=== PATIENT | female | born 1935 | race Caucasian/White ===

== ENCOUNTER → 2017-07-03 10:29 | Outpatient (REF) | payer MEDICARE, MEDICAID, SELFPAY ==
[2017-07-03 14:08] LABS: Alanine Aminotransferase 37 U/L (12-78); Albumin/Globulin Ratio 1.2 (1.1-1.8); Alkaline Phosphatase 140 U/L (46-116); Anion Gap 11.6 mEq/L (5-15); Aspartate Amino Transferase 24 U/L (15-37); Bilirubin,Total 0.3 mg/dL (0.2-1.0); Blood Urea Nitrogen 22 mg/dL (7-18); Calcium 8.9 mg/dL (8.5-10.1); Carbon Dioxide 28 mmol/L (21.0-32.0); Chloride 102 mmol/L (98-107); Creatinine,Serum 1.23 mg/dL (0.55-1.02); Estimated Glomerular Filt Rate 42 ml/min (>60); GFR (African American) 51 ML/MIN (>60); Globulin 3.3 gm/dl (1.3-3.2); Glucose 99 mg/dL (74-106); Phenytoin (Dilantin) 9.3 ug/mL (10-20); Potassium 4.6 mmoL/L (3.5-5.1); Sodium 137 mmol/L (136-145); Total Protein,Serum 7.3 gm/dL (6.4-8.2)
== END ==
LOC: LAB.CARL 10:29
PROVIDERS: Visit Provider Physician Assistant
DX: Z51.81 Encounter for therapeutic drug level monitoring (principal); R56.9 Unspecified convulsions
CPT/HCPCS: 80053; 80185

== ENCOUNTER → 2017-07-17 11:21 | Outpatient (REF) | payer MEDICARE, MEDICAID, SELFPAY ==
[2017-07-17 14:20] LABS: Alanine Aminotransferase 35 U/L (12-78); Albumin Level 3.6 gm/dL (3.4-5.0); Albumin/Globulin Ratio 1.1 (1.1-1.8); Alkaline Phosphatase 117 U/L (46-116); Anion Gap 14.7 mEq/L (5-15); Aspartate Amino Transferase 21 U/L (15-37); Bilirubin,Total 0.1 mg/dL (0.2-1.0); Blood Urea Nitrogen 25 mg/dL (7-18); Calcium 8.4 mg/dL (8.5-10.1); Carbon Dioxide 26 mmol/L (21.0-32.0); Chloride 104 mmol/L (98-107); Creatinine,Serum 1.14 mg/dL (0.55-1.02); Estimated Glomerular Filt Rate 46 ml/min (>60); GFR (African American) 55 ML/MIN (>60); Globulin 3.2 gm/dl (1.3-3.2); Glucose 93 mg/dL (74-106); Phenytoin (Dilantin) 12.4 ug/mL (10-20); Potassium 4.7 mmoL/L (3.5-5.1); Sodium 140 mmol/L (136-145); Total Protein,Serum 6.8 gm/dL (6.4-8.2)
[2017-07-18 11:16] LABS: Microalbumin, Urine 118.4 ug/mL (Not Estab.)
[2017-07-20 09:26] LABS: Creatinine, Urine 32.4 mg/dL (Not Estab.)
== END ==
LOC: LAB.CARL 11:21
PROVIDERS: Visit Provider Physician Assistant
DX: G40.909 Epilepsy, unspecified, not intractable, without status epilepticus (principal); Z51.81 Encounter for therapeutic drug level monitoring
CPT/HCPCS: 80053; 80185; 82043; 82570

== ENCOUNTER → 2018-03-26 14:40 | Outpatient (CLI) | payer MEDICARE, MEDICAID, SELFPAY ==
--- NOTE | 2018-03-26 14:48 | XR_ITS ---
XR XR knee LT 4V Comparison: Left femur 2 views 11/17/2016 History: Fall. Right knee pain. Technique: Weightbearing AP, lateral and Wen views were performed as well as oblique. Findings: No acute fracture or significant acute findings. Diffuse demineralization. Osteoporosis. Upper normal joint fluid suprapatella bursa but no discrete fracture is identified tibia and tibial plateau intact. Femoral condyles intact with only scant sclerosis along the lateral femoral condyle which may reflect some subtle early degenerative changes.. Patellofemoral joint and relationships appear normal Long intramedullary domi at the tibia extends down to the distal tibial metaphysis and secured by transverse screw. This area appears intact with no acute fracture.. Of this domi placed for ORIF intertrochanteric fracture Diffuse atherosclerotic calcification superficial femoral artery extending down towards the junction of popliteal artery. Impression: 1. No acute fracture or findings. .. 2.. Partially imaged femoral medullary domi from proximal ORIF.. . 3. Diffuse demineralization. Osteoporosis.
== END ==
PROVIDERS: PCP Physician Assistant; Visit Provider Physician Assistant
DX: M25.562 Pain in left knee (principal); W19.XXXA Unspecified fall, initial encounter
CPT/HCPCS: 73564

== ENCOUNTER → 2018-07-03 10:42 | Outpatient (CLI) | payer MEDICARE, MEDICAID, SELFPAY ==
[2018-07-03 13:50] LABS: Basophils % 0.4 % (0.1-2.0); Eosinophils # 0.2 K/mm3 (0.0-0.4); Eosinophils % 4.1 % (0.1-12.0); Hematocrit 36.5 % (37.0-47.0); Hemoglobin 11.9 g/dL (12.2-16.2); Lymphocytes # 1.4 K/mm3 (0.7-4.5); Lymphocytes % 33.1 % (10-50); Mean Corpuscular HGB Conc 32.6 g/dL (31.8-35.4); Mean Corpuscular Hemoglobin 31.4 pg (27.0-31.2); Mean Corpuscular Volume 96.1 fl (81-99); Mean Platelet Volume 8.5 fl (7.4-10.4); Monocytes # 0.3 K/mm3 (0.1-1.0); Monocytes % 6.4 % (1.7-9.3); Neutrophils # 2.3 K/mm3 (1.8-7.8); Neutrophils % 55.9 % (37.0-80.0); Platelet Count 218 K/mm3 (142-424); Red Cell Distribution Width 13.5 % (11.5-17.5); White Blood Count 4.2 K/mm3 (4.8-10.8)
[2018-07-03 13:56] LABS: Alanine Aminotransferase 33 U/L (12-78); Albumin Level 3.6 gm/dL (3.4-5.0); Alkaline Phosphatase 135 U/L (46-116); Anion Gap 16.4 mEq/L (5-15); Aspartate Amino Transferase 26 U/L (15-37); Bilirubin,Total 0.3 mg/dL (0.2-1.0); Blood Urea Nitrogen 23 mg/dL (7-18); Calcium 9.1 mg/dL (8.5-10.1); Carbon Dioxide 27 mmol/L (21.0-32.0); Chloride 103 mmol/L (98-107); Creatinine,Serum 1.31 mg/dL (0.55-1.02); Estimated Glomerular Filt Rate 39 ml/min (>60); GFR (African American) 47 ML/MIN (>60); Globulin 3.5 gm/dl (1.3-3.2); Glucose 89 mg/dL (74-106); Potassium 4.4 mmoL/L (3.5-5.1); Sodium 142 mmol/L (136-145); Total Protein,Serum 7.1 gm/dL (6.4-8.2)
== END ==
PROVIDERS: PCP Physician Assistant; Visit Provider Physician Assistant
DX: I10 Essential (primary) hypertension (principal); R53.1 Weakness
CPT/HCPCS: 80053; 85025

== ENCOUNTER → 2019-04-15 11:32 | Outpatient (CLI) | payer MEDICARE, MEDICAID, SELFPAY ==
[2019-04-15 14:40] LABS: Phenytoin (Dilantin) 7.6 ug/mL (10-20)
[2019-04-15 14:42] LABS: Basophils % 0.4 % (0.1-2.0); Carbon Dioxide 24 mmol/L (21.0-32.0); Chloride 106 mmol/L (98-107); Eosinophils # 0.2 K/mm3 (0.0-0.4); Eosinophils % 2.7 % (0.1-12.0); Hemoglobin 11.7 g/dL (12.2-16.2); Lymphocytes # 1.6 K/mm3 (0.7-4.5); Lymphocytes % 28.6 % (10-50); Mean Corpuscular HGB Conc 32.4 g/dL (31.8-35.4); Mean Corpuscular Hemoglobin 31.9 pg (27.0-31.2); Mean Corpuscular Volume 98.4 fl (81-99); Mean Platelet Volume 9.3 fl (7.4-10.4); Monocytes # 0.4 K/mm3 (0.1-1.0); Monocytes % 6.2 % (1.7-9.3); Neutrophils # 3.5 K/mm3 (1.8-7.8); Platelet Count 212 K/mm3 (142-424); Red Blood Count 3.66 M/mm3 (4.20-5.40); Red Cell Distribution Width 13.6 % (11.5-17.5); Sodium 144 mmol/L (136-145); T4 (Thyroxine) 7.1 ug/dl (4.7-13.3); White Blood Count 5.7 K/mm3 (4.8-10.8)
[2019-04-15 15:08] LABS: Alanine Aminotransferase 28 U/L (12-78); Albumin Level 3.4 gm/dL (3.4-5.0); Alkaline Phosphatase 136 U/L (46-116); Aspartate Amino Transferase 21 U/L (15-37); Bilirubin,Total 0.1 mg/dL (0.2-1.0); Blood Urea Nitrogen 26 mg/dL (7-18); Calcium 8.1 mg/dL (8.5-10.1); Chol/HDL Ratio 2.3 (1-3.5); Cholesterol 166 mg/dL (140-200); Creatinine,Serum 1.24 mg/dL (0.55-1.02); Estimated Glomerular Filt Rate 41 ml/min (>60); Free Thyroxine Index 2.5 ug/dL (5.93-13.13); GFR (African American) 50 ML/MIN (>60); Globulin 3.3 gm/dl (1.3-3.2); Glucose 105 mg/dL (74-106); HDL Cholesterol 72 mg/dL (29-89); LDL Cholesterol 66 mg/dL (0-130); Thyroid Stimulating Hormone 1.78 uIU/ml (0.358-3.740); Total Protein,Serum 6.7 gm/dL (6.4-8.2); Triglycerides 141 mg/dL (30-200); Triiodothryronine (T3) Uptake 35 % (31-39); VLDL Cholesterol 28 mg/dL (0-40)
== END ==
PROVIDERS: PCP Nurse Practitioner Family; Visit Provider Nurse Practitioner Family
DX: I10 Essential (primary) hypertension (principal); E78.49 Other hyperlipidemia; R56.9 Unspecified convulsions
CPT/HCPCS: 80053; 80061; 80185; 84436; 84443; 84479; 85025

== ENCOUNTER 2020-09-07 10:09 | Emergency (ER) | payer MEDICARE, MEDICAID, SELFPAY ==
--- NOTE | 2020-09-07 10:17 | XR_ITS ---
PROCEDURE: XR KNEE RT 3V CLINICAL INDICATION: FALL COMPARISON: CR [id number] XR knee LT 4V from 03/26/2018 FINDINGS: No acute fracture or dislocation. No lytic or blastic change. Generalized osteopenia. No suprapatellar joint effusion. The soft tissues are unremarkable. Vascular calcification is noted. IMPRESSION: Osteopenia. No acute fractures or dislocations. Dictated by: Renata Bautista 09/07/2020 11:15 Renata Bautista in [place] 09/07/2020 11:15
--- NOTE | 2020-09-07 10:17 | XR_ITS ---
PROCEDURE: XR WRIST LT MIN 3V CLINICAL INDICATION: FALL COMPARISON: CR WRR3 WRIST-3 VIEWS-RT from 10/15/2012 CR WRIST-2 VIEWS-RT from 10/15/2012 CR WRR3 WRIST-3 VIEWS-RT from 10/15/2012 CR WRR3 WRIST-3 VIEWS-RT from 11/29/2012 FINDINGS: Generalized osteopenia limits evaluation. There is heterogeneous density of the distal radius with the evidence of minor cortical irregularity and lucency, raises the concern for undisplaced fracture. Sequela of prior fracture is again noted. The radiocarpal alignment is unremarkable. There is a print soft tissue swelling of the left wrist joint. Vascular calcification is noted. IMPRESSION: Generalized osteopenia limits evaluation. Sequela of old distal radial fracture. There is a minimal lucency with adjacent soft tissue swelling of the distal radius noted, concerning for undisplaced fracture. Dictated by: Renata Bautista 09/07/2020 11:14 Renata Bautista in [place] 09/07/2020 11:14
[2020-09-07 10:50] VITALS: BP 182/96; PULSE 79; RESP 16; TEMP 36.6; O2SAT 98; BMI 17.2
--- NOTE | 2020-09-07 11:11 | [facility].EDUTC ---
[facility] [place] Clinical Impression: Fracture, radius, head Qualifiers: Encounter type: initial encounter Fracture type: closed Fracture alignment: nondisplaced Laterality: left Qualified Code(s): S52.125A - Nondisplaced fracture of head of left radius, initial encounter for closed fracture Strain of right knee Qualifiers: Encounter type: initial encounter Qualified Code(s): S86.911A - Strain of unspecified muscle(s) and tendon(s) at lower leg level, right leg, initial encounter Disposition: Home, Self-Care Condition on Discharge: Good Instructions: Wrist Fracture, DI for Knee Sprain, How to Use an Elastic Bandage-Knee Sprain Additional Instructions: follow up with ortho ekaterina wrap ice 20 mins and remove may repeat every hour as needed tylenol or motrin as needed for pain elevate wrist and knee Referrals: Trenton Corcoran MD [Primary Care Provider] - Claudio Bautista MD [Staff Physician] - Time of Disposition: 11:55 Medical Decision Making - Darion Inquiry Pt receiving controlled substance: No Vital Signs: 09/07/20 10:50 Temperature 97.8 F Temperature Source Oral Pulse Rate [Right Brachial] 79 Respiratory Rate 16 Blood Pressure [Right Arm] 182/96 H Blood Pressure Mean [Right Arm] 124 Blood Pressure Source [Right Arm] Automatic Cuff Blood Pressure Position [Right Arm] Sitting 02 Sat by Pulse Oximetry 98 Oxygen Delivery Method Room Air [facility] [place] HPI - General Chief complaint: Urgent [facility] Stated complaint: [id number] fell injured Lt wrist, Rt knee Time Seen by Provider: 09/07/20 11:11 Mode of Arrival: Ambulatory Source of Information: Patient Limitations: No Limitations Description of Symptoms (Recalled from Triage Doc. by RN): PATIENT C/O INJURY TO LEFT WRIST AND RIGHT KNEE INJURY AFTER FALLING IN THE KITCHEN YESTERDAY HEENT Symptoms (Recalled from RN notes): No Resp Symptoms (Recalled from RN notes): No Skin Symptoms (Recalled from RN notes): No MS Symptoms (Recalled from RN notes): Yes Functional Status (Recalled from RN notes): WNL - History of Present Illness Provider Complaint: 84 yr old female presents for left wrist pain and rt knee pain. family states yesterday pt fell twice. the first time she was hanging her underwear up and fell in the bathroom injuring her rt knee. Family states later that day she was fixing a cup of coffe ans stated her knee gave out and she fell causing her wrist injury. family states she is bnot wanting to use wrist or stand on leg - Related Data Allergies Allergy/AdvReac Type Severity Reaction Status Date / Time No Known Allergies Allergy Verified 03/29/18 10:50 - Worker's Comp Is this a Worker's Comp case?: No [facility] History - Hepatitis A Screen Drug use history?: No High risk sexual behaviors?: No History of sexually transmitted infection?: No Currently employed?: No Childcare worker?: No Do you have indoor plumbing?: Yes Do you have electricity?: Yes Attestation statement:: This patient has been screened for Hepatitis A risk factors. I have reviewed the patient's past medical history: Yes Medical History: Reports:: Anxiety, Hyperlipidemia, Hypertension, Osteoporosis Other Medical History: Reports: Arthritis, Osteoporosis Other Surgeries: Yes: Other Amputation: No Fractures: Yes Comment: Bilateral hip rods - Social History Smoking Status: Never smoker Alcohol Intake: never Occupational Status: other Housing: house Household Members: none - Psychiatric History Pschychiatric History:: Reports:: Anxiety Family Hx:: Non-contributory ROS Obtained: Yes Systems reviewed as appropriate & no additional complaints - Constitutional Constitutional: Reports system reviewed and no additional complaints, except as docu, Denies fever(s) - Eyes Eyes: Reports system reviewed and no additional complaints, except as docu, Denies change in vision - ENT Ears, Nose, Mouth, and Throat: Reports system reviewed and no additional complaints, except as
[2020-09-07 12:04] VITALS: BP 182/96; PULSE 79; RESP 16; TEMP 36.6; O2SAT 98
== END 2020-09-07 12:06 | disposition home or self-care (01) ==
PROVIDERS: Emergency Provider Nurse Practitioner Family; PCP Family Medicine
DX: S86.911A Strain of unspecified muscle(s) and tendon(s) at lower leg level, right leg, initial encounter (principal); S52.125A Nondisplaced fracture of head of left radius, initial encounter for closed fracture; E78.5 Hyperlipidemia, unspecified; M85.831 Other specified disorders of bone density and structure, right forearm; M85.862 Other specified disorders of bone density and structure, left lower leg; W01.0XXA Fall on same level from slipping, tripping and stumbling without subsequent striking against object, initial encounter; Y92.010 Kitchen of single-family (private) house as the place of occurrence of the external cause; I10 Essential (primary) hypertension; F41.9 Anxiety disorder, unspecified
CPT/HCPCS: 29125; G0463; 73110; 73562; 99202

== ENCOUNTER 2020-09-14 10:21 | Outpatient (RCR) | payer MEDICARE, MEDICAID, SELFPAY | END 2020-09-14 11:24 | disposition home or self-care (01) | LOC: OT 10:21 | PROVIDERS: Visit Provider Orthopaedic Surgery | DX: S52.125A Nondisplaced fracture of head of left radius, initial encounter for closed fracture (principal) | CPT/HCPCS: 97763 ==

== ENCOUNTER → 2020-11-25 09:39 | Outpatient (CLI) | payer MEDICARE, MEDICAID, SELFPAY ==
--- NOTE | 2020-11-25 09:45 | XR_ITS ---
PROCEDURE: XR WRIST LT MIN 3V CLINICAL INDICATION: LT wrist Follow-up fracture COMPARISON: CR WRIST-2 VIEWS-RT from 10/15/2012 CR WRR3 WRIST-3 VIEWS-RT from 10/15/2012 CR WRR3 WRIST-3 VIEWS-RT from 11/29/2012 CR XR WRIST LT MIN 3V from 09/07/2020 FINDINGS: There is a healing transverse fracture involving the distal radius as noted before. There is mild dorsal angulation and minimal dorsal displacement of the distal fracture fragment. Fracture line is becoming sclerotic suggesting healing. Minimally distracted fracture of the ulnar styloid process noted. There is diffuse osteopenia and vascular calcification. IMPRESSION: Healing distal radial fracture as described above with minimally distracted ulnar styloid process fracture Dictated by: Osmar Crump MD 11/25/2020 11:46 Osmar Crump MD in [place] 11/25/2020 11:46
== END ==
PROVIDERS: PCP Nurse Practitioner Family; Visit Provider Orthopaedic Surgery
DX: S52.502D Unspecified fracture of the lower end of left radius, subsequent encounter for closed fracture with routine healing (principal)
CPT/HCPCS: 73110

== ENCOUNTER → 2021-12-13 17:43 | Outpatient (CLI) | payer MEDICARE, MEDICAID, SELFPAY ==
[2021-12-13 18:51] LABS: Basophils % 0.5 % (0.1-2.0); Eosinophils # 0.1 K/mm3 (0.0-0.4); Eosinophils % 1.3 % (0.1-12.0); Hematocrit 38.3 % (37.0-47.0); Hemoglobin 12.2 g/dL (12.2-16.2); Lymphocytes # 1.4 K/mm3 (0.7-4.5); Mean Corpuscular HGB Conc 31.7 g/dL (31.8-35.4); Mean Corpuscular Hemoglobin 32.2 pg (27.0-31.2); Mean Corpuscular Volume 101.7 fl (81-99); Monocytes # 0.3 K/mm3 (0.1-1.0); Monocytes % 4.7 % (1.7-9.3); Neutrophils # 4.4 K/mm3 (1.8-7.8); Neutrophils % 71.5 % (37.0-80.0); Platelet Count 270 K/mm3 (142-424); Red Blood Count 3.77 M/mm3 (4.20-5.40); Red Cell Distribution Width 13.4 % (11.5-17.5); White Blood Count 6.2 K/mm3 (4.8-10.8)
[2021-12-13 19:05] LABS: Alanine Aminotransferase 23 U/L (12-78); Albumin Level 4.3 g/dl (3.5-5.0); Albumin/Globulin Ratio 1.5 (1.1-1.8); Alkaline Phosphatase 172 U/L (38-126); Anion Gap 11.8 mEq/L (5-15); Aspartate Amino Transferase 42 U/L (14-36); Blood Urea Nitrogen 22 mg/dl (7-17); Calcium 9.8 mg/dl (8.4-10.2); Carbon Dioxide 27 mmol/L (22.0-30.0); Chloride 106 mmol/L (98-107); Estimated Glomerular Filt Rate 39 ml/min (>60); GFR (African American) 47 ML/MIN (>60); Globulin 2.9 g/dL (1.3-3.2); Glucose 119 mg/dl (74-100); Potassium 5.8 mmoL/L (3.5-5.1); Sodium 139 mmol/L (136-145); Total Protein,Serum 7.2 g/dl (6.3-8.2)
[2021-12-13 19:06] LABS: Bilirubin,Total < 0.1 mg/dl (0.2-1.3)
== END ==
PROVIDERS: PCP Family Medicine; Visit Provider Family Medicine
DX: G40.909 Epilepsy, unspecified, not intractable, without status epilepticus (principal)
CPT/HCPCS: 80053; 85025

== ENCOUNTER → 2022-02-25 10:30 | Outpatient (CLI) | payer MEDICARE, MEDICAID, SELFPAY ==
[2022-02-25 19:37] LABS: Alanine Aminotransferase 23 U/L (12-78); Albumin Level 3.8 g/dl (3.5-5.0); Albumin/Globulin Ratio 1.6 (1.1-1.8); Alkaline Phosphatase 136 U/L (38-126); Anion Gap 17.7 mEq/L (5-15); Aspartate Amino Transferase 46 U/L (14-36); Bilirubin,Total 0.2 mg/dl (0.2-1.3); Blood Urea Nitrogen 26 mg/dl (7-17); Calcium 8.2 mg/dl (8.4-10.2); Carbon Dioxide 25 mmol/L (22.0-30.0); Chloride 104 mmol/L (98-107); Estimated Glomerular Filt Rate 33 ml/min (>60); GFR (African American) 40 ML/MIN (>60); Globulin 2.4 g/dL (1.3-3.2); Glucose 103 mg/dl (74-100); Potassium 5.7 mmoL/L (3.5-5.1); Sodium 141 mmol/L (136-145); Total Protein,Serum 6.2 g/dl (6.3-8.2)
[2022-02-25 20:17] LABS: Basophils # 0.1 K/mm3 (0-0.2); Basophils % 1.2 % (0.1-2.0); Eosinophils # 0.3 K/mm3 (0.0-0.4); Eosinophils % 6.1 % (0.1-12.0); Hematocrit 30.3 % (37.0-47.0); Hemoglobin 10.2 g/dL (12.2-16.2); Lymphocytes # 1.9 K/mm3 (0.7-4.5); Lymphocytes % 34.9 % (10-50); Mean Corpuscular HGB Conc 33.7 g/dL (31.8-35.4); Mean Corpuscular Hemoglobin 33.8 pg (27.0-31.2); Mean Platelet Volume 9.4 fl (7.4-10.4); Monocytes # 0.4 K/mm3 (0.1-1.0); Monocytes % 7.3 % (1.7-9.3); Neutrophils # 2.7 K/mm3 (1.8-7.8); Neutrophils % 50.4 % (37.0-80.0); Platelet Count 276 K/mm3 (142-424); Red Blood Count 3.03 M/mm3 (4.20-5.40); Red Cell Distribution Width 14.1 % (11.5-17.5); White Blood Count 5.3 K/mm3 (4.8-10.8)
[2022-02-25 20:25] LABS: Erythrocyte Sedimentation Rate QNS mm/hr (0-30)
[2022-02-25 20:38] LABS: C-Reactive Protein 5.8 mg/L (0-4)
[2022-02-27 09:12] LABS: RA Latex Turbid. <10.0 IU/mL (<14.0)
[2022-02-27 14:13] LABS: Anti-Centromere B Antibodies <0.2 AI (0.0-0.9); Anti-DNA (DS) Ab Qn 10 IU/mL (0-9); Anti-Jo-1 <0.2 AI (0.0-0.9); Anti-Smith Antibody <0.2 AI (0.0-0.9); Antichromatin Antibodies <0.2 AI (0.0-0.9); Antiscleroderma-70 Antibodies <0.2 AI (0.0-0.9); RNP Antibodies <0.2 AI (0.0-0.9); Sjogren's Anti-SS-A <0.2 AI (0.0-0.9); Sjogren's Anti-SS-B <0.2 AI (0.0-0.9)
== END ==
PROVIDERS: PCP Nurse Practitioner Family; Visit Provider Nurse Practitioner Family
DX: J32.9 Chronic sinusitis, unspecified (principal); M25.50 Pain in unspecified joint; R51.9 Headache, unspecified
CPT/HCPCS: 80053; 85025; 86140; 86225; 86235; 86431

== ENCOUNTER → 2023-03-30 19:57 | Outpatient (CLI) | payer MEDICARE, MEDICAID, SELFPAY ==
[2023-03-30 20:25] LABS: Alanine Aminotransferase 35 U/L (12-78); Albumin Level 4.3 g/dl (3.5-5.0); Albumin/Globulin Ratio 1.6 (1.1-1.8); Alkaline Phosphatase 119 U/L (38-126); Anion Gap 15.1 mEq/L (5-15); Aspartate Amino Transferase 50 U/L (14-36); Bilirubin,Total 0.3 mg/dl (0.2-1.3); Blood Urea Nitrogen 28 mg/dl (7-17); Calcium 8.9 mg/dl (8.4-10.2); Carbon Dioxide 26 mmol/L (22.0-30.0); Chloride 103 mmol/L (98-107); Chol/HDL Ratio 3.3 (1-3.5); Cholesterol 177 mg/dl (140-200); Estimated Glomerular Filt Rate 33 ml/min (>60); GFR (African American) 40 ML/MIN (>60); Globulin 2.7 g/dL (1.3-3.2); Glucose 126 mg/dl (74-100); HDL Cholesterol 54 mg/dl (40-60); Potassium 5.1 mmoL/L (3.5-5.1); Sodium 139 mmol/L (136-145); Triglycerides 193 mg/dl (30-150); VLDL Cholesterol 39 mg/dL (0-40)
[2023-03-30 20:36] LABS: Direct LDL Cholesterol 79.75 mg/dL (100-129)
[2023-03-30 20:40] LABS: Basophils % 0.3 % (0.1-2.0); Eosinophils # 0.1 K/mm3 (0.0-0.4); Eosinophils % 2.2 % (0.1-12.0); Hematocrit 39.7 % (37.0-47.0); Hemoglobin 12.5 g/dL (12.2-16.2); Lymphocytes # 1.4 K/mm3 (0.7-4.5); Lymphocytes % 25.1 % (10-50); Mean Corpuscular HGB Conc 31.3 g/dL (31.8-35.4); Mean Corpuscular Hemoglobin 32.9 pg (27.0-31.2); Mean Platelet Volume 9.9 fl (7.4-10.4); Monocytes # 0.3 K/mm3 (0.1-1.0); Monocytes % 6.1 % (1.7-9.3); Neutrophils # 3.8 K/mm3 (1.8-7.8); Neutrophils % 66.3 % (37.0-80.0); Platelet Count 244 K/mm3 (142-424); Red Blood Count 3.78 M/mm3 (4.20-5.40); Red Cell Distribution Width 13.8 % (11.5-17.5); White Blood Count 5.7 K/mm3 (4.8-10.8)
[2023-03-30 20:55] LABS: Thyroid Stimulating Hormone 3.17 uIU/mL (0.465-4.68)
== END ==
PROVIDERS: PCP Family Medicine; Visit Provider Family Medicine
DX: I10 Essential (primary) hypertension (principal); S52.125A Nondisplaced fracture of head of left radius, initial encounter for closed fracture
CPT/HCPCS: 80053; 80061; 84443; 85025

== ENCOUNTER 2023-10-04 01:28 | Emergency (ER) | payer MEDICARE, MEDICAID, SELFPAY ==
--- NOTE | 2023-10-04 02:04 | CT_ITS ---
PROCEDURE INFORMATION: Exam: CT Cervical Spine Without Contrast Exam date and time: 10/04/2023 2:33 AM Age: 87 years old Clinical indication: Injury or trauma; Fall; Blunt trauma TECHNIQUE: Imaging protocol: Computed tomography of the cervical spine without contrast. Radiation optimization: All CT scans at this facility use at least one of these dose optimization techniques: automated exposure control; mA and/or kV adjustment per patient size (includes targeted exams where dose is matched to clinical indication); or iterative reconstruction. COMPARISON: CT HEAD/BRAIN WO CON 10/04/2023 2:33 AM FINDINGS: Bones/joints: Diffuse cervical spondylosis is noted. Hypertrophic changes of the facet present bilaterally. Discs/Spinal canal/Neural foramina: Narrowing of multiple intervertebral disc spaces are seen. Moderate neural foraminal narrowing is also noted. Lungs: Lung apices are normal. Vasculature: No obvious traumatic injury is seen. Carotid atherosclerosis is present. Soft tissues: Unremarkable. IMPRESSION: 1. No evidence of acute traumatic injury. 2. Diffuse cervical spondylosis. 3. Carotid atherosclerosis is present.
--- NOTE | 2023-10-04 02:04 | CT_ITS ---
PROCEDURE INFORMATION: Exam: CT Head Without Contrast Exam date and time: 10/04/2023 2:33 AM Age: 87 years old Clinical indication: Injury or trauma; Fall; Blunt trauma (contusions or hematomas); Consciousness not specified; Additional info: Fall, facial laceration TECHNIQUE: Imaging protocol: Computed tomography of the head without contrast. Radiation optimization: All CT scans at this facility use at least one of these dose optimization techniques: automated exposure control; mA and/or kV adjustment per patient size (includes targeted exams where dose is matched to clinical indication); or iterative reconstruction. COMPARISON: CT CERVICAL SPINE WO CON 10/04/2023 2:33 AM FINDINGS: Brain: There is diffuse prominence of the cerebral sulci, cisterns, and ventricles consistent with atrophy. No intra or extra-axial fluid collections are noted. No mass or mass effect is seen. Periventricular white matter hypoattenuation is seen consistent with chronic small vessel disease. Cerebral ventricles: No ventriculomegaly. Paranasal sinuses: Visualized sinuses are unremarkable. No fluid levels. Mastoid air cells: Visualized mastoid air cells are well aerated. Bones: Unremarkable. No acute fracture. Soft tissues: Unremarkable. IMPRESSION: No acute process noted.
[2023-10-04 02:06] VITALS: BP 194/94; PULSE 112; RESP 20; TEMP 36.4; O2SAT 93; BMI 15.1
[2023-10-04 02:14] VITALS: BP 194/94; PULSE 107; O2SAT 95
--- NOTE | 2023-10-04 02:30 | PC.NURSE ---
PT TO CT VIA STRETCHER. FAMILY MEMBER AND NURSE ACCOMPANYING D/T MENTALITY
[2023-10-04] MEDS: TET/DIPHTH/PERT-ADULT 0.5ML SYRINGE 0.5 ML IM (03:11)
--- NOTE | 2023-10-04 03:15 | ED_ITS ---
Discharge Plan Disposition Patient Disposition: Home, Self-Care Prescriptions Prescriptions: No Action atorvastatin 40 mg tablet 40 mg PO HS 90 Days Qty: 90 2RF bisoprolol fumarate 10 mg tablet 10 mg PO DAILY 90 Days Qty: 90 2RF lisinopril 30 mg tablet 30 mg PO DAILY 90 Days Qty: 90 2RF Centrum Adult 50 Fresh-Fruity 120 mcg tablet,chewable 1 tab PO DAILY docusate sodium 100 mg capsule 100 mg PO DAILY PRN (Reason: constipation) Patient Comments: TAKE 1 CAPSULE 1 TIME EACH DAY NEEDED FOR CONSTIPATION diclofenac sodium 1 % gel 4 g TP BID 30 Days Qty: 100 2RF acetaminophen 650 mg tablet extended release See Rx Instructions .ROUTE .COMPLEX Qty: 90 2RF Dose Instruction: TAKE 1 TABLET EVERY 8 HOURS NEEDED FOR PAIN Rx Instructions: TAKE 1 TABLET EVERY 8 HOURS NEEDED FOR PAIN alprazolam 0.25 mg tablet 0.25 mg PO DAILY Qty: 30 3RF phenytoin sodium extended 100 mg capsule See Rx Instructions .ROUTE .COMPLEX Qty: 90 2RF Dose Instruction: TAKE TWO CAPSULES IN THE MORNING, AND TAKE 1 CAPSULE AT BEDTIME. Rx Instructions: TAKE TWO CAPSULES IN THE MORNING, AND TAKE 1 CAPSULE AT BEDTIME. amlodipine 10 mg tablet See Rx Instructions .ROUTE .COMPLEX Qty: 30 2RF Dose Instruction: TAKE 1 TABLET 1 TIME EACH DAY FOR HIGH BLOOD PRESSURE Rx Instructions: TAKE 1 TABLET 1 TIME EACH DAY FOR HIGH BLOOD PRESSURE citalopram 10 mg tablet See Rx Instructions .ROUTE .COMPLEX Qty: 30 2RF Dose Instruction: TAKE 1 TABLET 1 TIME EACH DAY Rx Instructions: TAKE 1 TABLET 1 TIME EACH DAY omeprazole 20 mg capsule,delayed release(DR/EC) See Rx Instructions .ROUTE .COMPLEX Qty: 30 2RF Dose Instruction: TAKE 1 CAPSULE 1 TIME EACH DAY FOR REFLUX Rx Instructions: TAKE 1 CAPSULE 1 TIME EACH DAY FOR REFLUX aspirin 81 mg Capsule 81 mg PO DAILY Referrals Follow up/Referrals: Jus Schmidt MD [Primary Care Provider] - See instructions Activity Restrictions/Add. Instructions Additional Instructions/Restrictions: Please monitor for signs of infection. Please have luann removed in 7 to 10 days. Please follow-up with your primary care provider. Please return to the emergency department if you develop any new or worsening symptoms or become concerned for your health. Clinical Impressions Clinical Impression: Laceration of face Qualifiers: Encounter type: initial encounter Qualified Code(s): S01.81XA - Laceration without foreign body of other part of head, initial encounter Discharge ED Provider: Dewayne Fernandes General Adult HPI General Chief complaint: Fall Stated complaint: FALL W/LAC Time Seen by Provider: 10/04/23 01:35 Mode of Arrival: Wheelchair Source of Information: Relative Limitations: Physical Limitations Description of Symptoms (Recalled from ER Triage Doc. by RN): Pt to ED with family members. Niece reports pt called her around 0100 stated that she had fallen. Grand daughter believes she was adjusting blinds in a tight area in the livingroom and fell and hit her head on the table. Unsure of any LOC, pt not on blood thinners. Mental status is at baseline, per family. Niece states pts neighbor checked on her around midnight and she was still in bed at that time. History of Present Illness HPI narrative: 87-year-old female presents after fall from standing with facial laceration. Unknown loss of consciousness. Patient is not on blood thinners besides daily baby aspirin. Patient fell while adjusting the blinds. Patient has some dementia and has difficulty in providing history. She has history of moderate to severe hypertension, normal blood pressures in the 170s to 180s. Related Data Home Medications Medication Instructions Recorded Confirmed multivitamin with minerals-folic 1 tab PO DAILY 12/13/21 10/04/23 acid 120 mcg chewable tablet (Centrum Adult 50 Plus Fresh-Fruity) docusate sodium 100 mg capsule 100 mg PO DAILY PRN constipation 08/11/22 10/04/23 aspirin 81 mg capsule 81 mg PO DAILY ANTIPLATELET 10/04/23 10/04/23 Previous Rx's Medication Instructions Recorded atorvastatin 40 mg tablet 40 mg PO HS 90 days #90 tabs 01/19/23 bisoprolol fumarate 10 mg tablet 10 mg PO DAILY 90 days #90 tabs 01/19/23 lisinopril 30 mg tablet 30 mg PO DAILY hypertension 90 01/19/23 days #90 tabs diclofenac sodium 1 % topical gel 4 g topical BID 30 days #100 grams 04/28/23 acetaminophen 650 mg See Rx Instructions .Route 07/17/23 tablet,extended release .COMPLEX #90 tabs alprazolam 0.25 mg tablet 0.25 mg PO DAILY #30 tabs 07/22/23 amlodipine 10 mg tablet See Rx Instructions .Route 08/28/23 .COMPLEX #30 tabs phenytoin sodium extended 100 mg See Rx Instructions .Route 08/28/23 capsule .COMPLEX #90 caps citalopram 10 mg tablet See Rx Instructions .Route 09/26/23 .COMPLEX #30 tabs omeprazole 20 mg capsule,delayed See Rx Instructions .Route 09/26/23 release .COMPLEX #30 caps Allergies Allergy/AdvReac Type Severity Reaction Status Date / Time cephalexin [From Keflex] Allergy vomiting Verified 09/18/23 11:03 [facility] Disclaimer: The information contained in this section may have been updated after the patient was seen, as this information can be updated by other users. Medical History Heart murmur Hypertension Anxiety Seizure disorder Strain of right knee Fracture, radius, head Surgical History Hip fracture requiring operative repair Social History Smoking Status: Unknown if ever smoked alcohol intake: never current occupational status: disabled and other Travel in the last 8 weeks: None household members: none (sitter at night/spends days with niece) housing: apartment ROS Obtained: Yes All systems reviewed & no additional complaints except as documented Physical Exam General General appearance: alert and in no apparent distress Head Head exam: normocephalic and other (Approximately 2 to 3 cm linear laceration to the right lateral forehead) Eye Eye exam: Present normal appearance, PERRL and EOMI ENT ENT exam: Present normal oropharynx and normal external ear exam Neck Neck exam: Present normal inspection and full ROM; Absent tenderness Chest Chest inspection: Present normal inspection and symmetric chest wall rise; Absent tenderness Respiratory Respiratory exam: Present normal lung sounds bilaterally; Absent respiratory distress Cardiovascular Cardiovascular exam: Present regular rate and normal rhythm Abdominal Exam Abdominal exam: Present soft; Absent distention, tenderness or guarding Extremities Exam Extremities exam: Present normal inspection; Absent tenderness, edema or joint swelling Back Exam Back exam: Present normal inspection; Absent tenderness Neurological Exam Neurological exam: Present alert and other (At baseline per family); Absent motor sensory deficit Psychiatric Psychiatric exam: Present normal affect and normal mood Skin Skin exam: Present warm, dry and normal color Lymphatic Lymphatic Findings: no adenopathy Medical Decision Making Medical Records Medical records reviewed: Yes I reviewed the patient's medical records. Darion Inquiry Pt receiving controlled substance: No Darion was queried for this patient: No Vital Signs: 10/04/23 02:06 10/04/23 02:14 10/04/23 03:19 Temperature 97.6 F 97.6 F Temperature Source Oral Oral Pulse Rate 107 H 87 Pulse Rate [Right Radial] 112 H Respiratory Rate 20 18 Blood Pressure 194/94 H 196/100 H Blood Pressure [Right Arm] 194/94 H Blood Pressure Mean 131 Blood Pressure Mean [Right Arm] 127 Blood Pressure Source Automatic Cuff Blood Pressure Source [Right Arm] Automatic Cuff Blood Pressure Position Sitting Blood Pressure Position [Right Arm] Sitting 02 Sat by Pulse Oximetry 93 L 95 Oxygen Delivery Method Room Air Room Air Lab Data Lab results reviewed: Yes I reviewed the patient's lab results. Orders (Tests/Meds): ED MEDICATIONS Discontinued Medications Generic Name Dose Route Start Last Admin Trade Name Freq PRN Reason Stop Dose Admin Tetanus/Reduced Diphtheria/Acell Pertussis 0.5 ml 10/04/23 03:04 10/04/23 03:11 Tet/Diphth/Pert-Adult 0.5ml Syringe IM 10/04/23 03:05 0.5 ml .ONCE ONE Administration ORDERS Category Date Time Status CT cervical spine wo con Stat Cat Scan 10/04/23 02:[address] head/brain wo con Stat Cat Scan 10/04/23 02:04 Completed Medical Decision Narrative: 87-year-old female presents after fall from standing with right facial laceration.. History was obtained interactive discussion with patient, family, chart review. On arrival, patient is afebrile, hypertensive (at baseline), moving all extremities spontaneously. Full physical exam performed and significant for right forehead/shinto laceration, no neck pain, no chest or pelvic tenderness, no significant extremity tenderness or spinal tenderness. Differential includes but is not limited to intracranial intrathoracic intra- abdominal or spinal trauma. Workup initiated including CT head, CT C-spine. On re-evaluation, patient [remains afebrile, HD stable.] Imaging independently interpreted by me and significant for no evidence of intracranial bleeding, no cervical fracture. See radiology read for full review of final results. Full trauma workup was considered, but deemed unnecessary due to isolated injury on exam. Given patient history, exam and workup, patient's presentation most likely represents facial laceration. It was repaired at bedside using luann after discussion with family. We elected to luann as the patient does not do well with the procedures and we elected for speed. Patient was given tetanus prophylaxis. Patient discharged in stable condition.. Procedures Risk/Benefits of Procedure(s) Were Explained: Yes Laceration Laceration 1: Site: face (Right shinto/forehead) Size (cm): 2 Description: linear Depth: involves subcutaneous layer Pre-repair: wound explored and irrigated extensively Skin layer closed with: other (3 [place]) Critical Care Critical Care Time Critical Care Time: No
[2023-10-04 03:19] VITALS: BP 196/100; PULSE 87; RESP 18; TEMP 36.4; O2SAT 96
== END 2023-10-04 03:22 | disposition home or self-care (01) ==
PROVIDERS: Emergency Provider Emergency Medicine; PCP Family Medicine
DX: S01.81XA Laceration without foreign body of other part of head, initial encounter (principal); I10 Essential (primary) hypertension; W18.30XA Fall on same level, unspecified, initial encounter; Z23 Encounter for immunization
CPT/HCPCS: 12011; 70450; 72125; 90471; 90715; 99284

== ENCOUNTER 2023-11-01 19:13 | Outpatient (CLI) | payer MEDICARE, MEDICAID, SELFPAY ==
[2023-11-01 20:28] LABS: Basophils % 0.2 % (0.1-2.0); Eosinophils # 0.1 K/mm3 (0.0-0.4); Eosinophils % 2.5 % (0.1-12.0); Hematocrit 31.3 % (37.0-47.0); Lymphocytes # 1.1 K/mm3 (0.7-4.5); Lymphocytes % 20.7 % (10-50); Mean Corpuscular HGB Conc 31.8 g/dL (31.8-35.4); Mean Corpuscular Hemoglobin 31.5 pg (27.0-31.2); Mean Platelet Volume 8.7 fl (7.4-10.4); Monocytes # 0.3 K/mm3 (0.1-1.0); Monocytes % 5.5 % (1.7-9.3); Neutrophils # 3.6 K/mm3 (1.8-7.8); Neutrophils % 71.1 % (37.0-80.0); Platelet Count 379 K/mm3 (142-424); Red Blood Count 3.16 M/mm3 (4.20-5.40); Red Cell Distribution Width 15.1 % (11.5-17.5); White Blood Count 5.1 K/mm3 (4.8-10.8)
[2023-11-01 20:51] LABS: Anion Gap 14.8 mEq/L (5-15); Blood Urea Nitrogen 35 mg/dl (7-17); Calcium 8.5 mg/dl (8.4-10.2); Carbon Dioxide 23 mmol/L (22.0-30.0); Chloride 107 mmol/L (98-107); Estimated Glomerular Filt Rate 30 ml/min (>60); GFR (African American) 37 ML/MIN (>60); Glucose 92 mg/dl (74-100); Potassium 4.8 mmoL/L (3.5-5.1); Sodium 140 mmol/L (136-145)
== END 2023-11-01 23:59 | disposition home or self-care (01) ==
LOC: LAB.DROPOF 19:14
PROVIDERS: PCP Family Medicine; Visit Provider Family Medicine
DX: S01.81XA Laceration without foreign body of other part of head, initial encounter
CPT/HCPCS: 80048; 85025